=== PATIENT | male | born 1955 | race Caucasian/White ===

== ENCOUNTER 2022-01-28 20:49 | Emergency (ER) | payer BC ==
[2022-01-28] MEDS ORDERED: cefTRIAXone\\ROCEPHIN 1 GM VIAL ONE (21:48)
[2022-01-28] MEDS ORDERED: Lidocaine 1% PF 5 ML VIAL ONE (21:48)
== END 2022-01-28 22:18 | disposition home or self-care (01) ==
LOC: ERS 20:49
DX: S80.212A Abrasion, left knee, initial encounter (principal); L03.116 Cellulitis of left lower limb; I10 Essential (primary) hypertension; E11.9 Type 2 diabetes mellitus without complications; J44.9 Chronic obstructive pulmonary disease, unspecified; E78.5 Hyperlipidemia, unspecified; W18.30XA Fall on same level, unspecified, initial encounter; Z79.82 Long term (current) use of aspirin; Z79.84 Long term (current) use of oral hypoglycemic drugs; Z79.899 Other long term (current) drug therapy
CPT/HCPCS: 96372; 99283; J0696

== ENCOUNTER 2022-02-09 08:40 | Outpatient (CLI) | payer BC | END 2022-02-09 08:41 | disposition home or self-care (01) | LOC: BICRAD 08:40 | PROVIDERS: ATTEND Family Medicine | DX: S89.92XA Unspecified injury of left lower leg, initial encounter (principal) ==